=== PATIENT | female | born 1990 | race African-American/Black ===

== ENCOUNTER 2022-03-06 06:39 | Emergency (ER) | payer OTHER, SELFPAY ==
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
--- NOTE | 2022-03-06 08:13 | RAD REPORT ---
EXAM DESCRIPTION: RAD - Knee Right 3 View - 03/06/2022 7:44 am CLINICAL HISTORY: Right knee pain status post injury FINDINGS: No fracture or dislocation is seen.
[2022-03-06 08:47] VITALS: TEMP 98.1; O2SAT 100
[2022-03-06 09:01] VITALS: BP 109/82
== END 2022-03-06 08:35 | disposition home or self-care (01) ==
LOC: ER 06:39
DX: S80.11XA Contusion of right lower leg, initial encounter (principal)
CPT/HCPCS: 99283

== ENCOUNTER 2025-05-03 06:47 | Emergency (ER) | payer OTHER, SELFPAY ==
[2025-05-03] MEDS ORDERED: IBUPROFEN 200 MG TAB PO ONE (07:43)
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
[2025-05-03 08:23] VITALS: TEMP 98.8; O2SAT 100
[2025-05-03 08:24] VITALS: BP 115/84
== END 2025-05-03 08:08 | disposition home or self-care (01) ==
LOC: ER 06:47
DX: S80.812A Abrasion, left lower leg, initial encounter (principal); S80.12XA Contusion of left lower leg, initial encounter; S80.11XA Contusion of right lower leg, initial encounter; S20.01XA Contusion of right breast, initial encounter; V49.40XA Driver injured in collision with unspecified motor vehicles in traffic accident, initial encounter
CPT/HCPCS: 99283